=== PATIENT | female | born 1995 | race Hispanic/Latino ===

== ENCOUNTER 2019-08-04 10:12 | Outpatient (CLI) | payer MEDICAID ==
--- NOTE | 2019-08-04 12:16 | ULT ---
FOCUSED ULTRASOUND LEFT BREAST: DATE: 08/04/2019. COMPARISON: None. HISTORY: Recent breast trauma with a palpable area of bruising. FINDINGS: Focused ultrasound in the area of palpable concern at the level of the patient's bruise demonstrates a hyperechoic 1.7 x 0.8 x 1.9 cm lesion just deep to the skin. Within this lesion there is a hypoech oic complex cystic area measuring 1.1 x 0.4 cm. This suggests fat necrosis with a small associated h ematoma given history of recent trauma and visible bruising. IMPRESSION: Findings suggesting a combination of fat necrosis and subcutaneous hematoma formation. Clinical foll owup is advised. If this area enlarges, a followup ultrasound is suggested. POS: OFF
== END 2019-08-04 10:13 | disposition home or self-care (01) ==
LOC: BICULT 10:12
PROVIDERS: ATTEND Physician Assistant
DX: N63.20 Unspecified lump in the left breast, unspecified quadrant (principal)